=== PATIENT | female | born 1965 | race Caucasian/White ===

== ENCOUNTER 2016-09-27 14:52 | Observation (INO) | payer OTHER ==
[~2016-09-27] VITALS: Ht 170.2 cm; Wt 53.7 kg
--- NOTE | 2016-09-27 00:15 | NUR ---
Admit Patient arrived to floor at 2320. Patient A&OX3. NO pain at this time. Patient's IV was not patent at time of arrival and was removed. A new IV was stared on patient around 0100. Patient was given Reglan and then began drinking her bowel prep. Patient stated she was tired and just wanted to sleep. Patient receiving 5mg Roxycodone for pain.
[~2016-09-27 14:52] MED LIST: OMEP-113 PO; OXYC5CAP4 PO; [UNRECOGNIZED DRUG - OTHER]
[2016-09-27 14:56] VITALS: BP 101/69; PULSE 84; RESP 12; O2SAT 100
--- NOTE | 2016-09-27 15:23 | ED.REPORT ---
HPI-General Illness Date of Service Sep 27, 2016 ED Provider: Sriram Gregg MD The patient is a 51 year old female who presents to the ED c/o increasingly severe, cramping, diffuse lower abdominal pain over past week. Nonradiating. Associated symptoms include severe nausea, vomiting, and constipation, though is passing stools. She denies vaginal discharge, dysuria, urinary symptoms, chest pain, SOB, fever, chills, vision changes, headache, unilateral weakness, or any other symptoms at this time. Eating occasionally causes upper abdominal discomfort somewhat, but she's not sure if it's related. Nursing Notes Stated Complaint: VOMITING,ABDOMINAL PAIN Chief Complaint: Female Abdominal Pain Nursing Notes Reviewed: Yes Allergies: Coded Allergies: codeine (Verified Allergy, Severe, OK TO TAKE OXYCODONE/HYDROCODONE, ) adhesive (Verified Allergy, Intermediate, 11/27/13) skin red and burning. Scheduled Omeprazole Magnesium (Omeprazole) 20 Mg Capsule.dr 20 MG PO DAILY Scheduled PRN oxyCODONE (oxyCODONE) 5 Mg Capsule 5 MG PO Q4H PRN PRN For Pain Miscellaneous Medications ([Zopridim]) General Time Seen by MD: 15:20 Chief Complaint Abdominal pain Hx Obtained From: Patient Arrived By: Walk-in Sudden in Onset?: Yes Onset Occurred: 1 week ago Symptom Duration: Since onset Location: : Abdomen Quality: Cramping, Painful Radiation: : Does not radiate Severity: Current: Severe Associated with: Reports: Nausea, Vomiting Pertinent Negative: Pt denies other symptoms Recent Healthcare: No recent doctor visit, No recent hospitalization Similar Sx Previous: No Past Medical History Past Medical History GERD depression anxiety Past Surgical History Reports: Hysterectomy, Inguinal hernia repair Smoking History Current Every Day Smoker Social History Alcohol Use: "Social" Other Social History: Good social support, From out of town Ambulatory Status Independent Review of Systems Full Review of Systems Respiratory: Denies: Shortness of breath Cardiovascular: Denies: Chest pain GI: Reports: Abdominal pain, Constipation, Nausea, Vomiting Female: Denies: Dysuria, Hematuria, Incontinence, Urinary frequency, Urinary urgency, Urination decreased, Urination increased, Vaginal discharge Complete sys rev & neg: except as marked. Physical Exam Nursing note and vitals reviewed. Constitutional: Well-developed, well-nourished. Not diaphoretic. Head: Normocephalic and atraumatic. Mouth/Throat: Oropharynx is clear and moist. No oropharyngeal exudate. Eyes: EOM are normal. Pupils are equal, round, and reactive to light. Neck: Supple, no tracheal deviation. Cardiovascular: Normal rate, regular rhythm. Equal and intact distal pulses throughout. Pulmonary/Chest: Effort normal and breath sounds normal. No respiratory distress. Abdominal: Soft. No distension. There is no focal tenderness, rebound, or guarding, though does have some mild, diffuse lower abdominal discomfort to palpation. Bowel sounds present. Musculoskeletal: Range of motion grossly intact, moving all extremities. No edema or tenderness appreciated. Neurological: AOx3. Grossly nonfocal exam. Strength and sensation intact and equal to bilateral upper and lower extremities. Skin: Warm and dry, no rashes or pallor appreciated. Psychiatric: Appropriate mood and affect. Behavior appears normal. Vital Signs Vital Signs Date Time Temp Pulse Resp B/P Pulse Ox O2 Delivery O2 Flow Rate FiO2 09/27/16 14:56 37.1 84 12 101/69 100 Room Air Initial VS: Reviewed Interpretation & Diagnostics Lab Results Interpretation Result Diagram: 09/27/16 1736 09/27/16 1736 Test 09/27/16 17:36 White Blood Count 11.2th/mm3 (3.8-10.1) Red Blood Count 4.48mil/mm3 (3.90-5.20) Hemoglobin 13.6g/dL (12.0-15.6) Hematocrit 39.7% (35.0-46.0) Mean Corpuscular Volume 88.6fL (81-100) Mean Corpuscular Hemoglobin 30.4pg (27.0-35.0) Mean Corpuscular Hemoglobin Concent 34.3% (32.0-37.0) Red Cell Distribution Width 14.6% (12.3-15.4) Platelet Count 354bil/L (150-400) Neutrophils (%) (Auto) 69.6% (40-74) Lymphocytes (%) (Auto) 22.0% (14-46) Monocytes (%) (Auto) 5.4% (4-12) Eosinophils (%) (Auto) 2.3% (0-5) Basophils (%) (Auto) 0.4% (0-3) Erythrocyte Sedimentation Rate 7mm/hr (0-40) Prothrombin Time 10.0sec (8.1-12.5) Prothromb Time International Ratio 0.94ratio Sodium Level 135mEq/L (134-144) Potassium Level 3.9mEq/L (3.5-5.2) Chloride Level 99mEq/L (97-108) Carbon Dioxide Level 21mmol/L (18-29) Blood Urea Nitrogen 13mg/dL (6-24) Creatinine 0.70mg/dL (0.57-1.00) Estimat Glomerular Filtration Rate 126mL/min (>59) Glucose Level 103mg/dL (60-99) Lactic Acid Level 1.1mmol/L (0.4-2.0) Calcium Level 9.5mg/dL (8.5-10.1) Magnesium Level 1.8mg/dL (1.6-2.6) Total Bilirubin 0.2mg/dL (0.0-1.2) Aspartate Amino Transf (AST/SGOT) 16U/L (0-50) Alanine Aminotransferase (ALT/SGPT) 14U/L (0-32) Alkaline Phosphatase 74U/L (25-150) C-Reactive Protein < 0.0mg/dL (0.0-0.5) Total Protein 7.0g/dL (6.4-8.4) Albumin 4.2g/dL (3.4-5.0) Lipase 42U/L (13-60) Lab Results Interpretation: LABS: CMP within normal limits WBC 11.2 normal differential Coags normal limits ECG Interpretation Time: 17:43 Interpreted by: ED physician Normal ECG Interpretation: Normal sinus rhythm (rate 66) CT Abd / Pelvis Interpretation IMPRESSION: Segmental wall thickening and abnormal enhancement in the descending and sigmoid colon may represent multifocal colitis. Inflammatory conditions such as ulcer colitis is also possible. Followup of the patient's symptoms, colonoscopy will be needed to exclude any underlying mass lesion. Dictated by: Santiago Phipps M.D. on 09/27/2016 at 20:33 Approved by: Santiago Phipps M.D. on 09/27/2016 at 20:38 Study type: Abdominal CT no contrast Interpretation / Wet Read by: Interpret - Radiologist Re-Eval/Medical Decision Med Decision/Clinical Course In summary, 51 yo F w/ a hx of a complete hysterectomy who presents to the ED for evaluation of abdominal pain associated with nausea and vomiting over the past month, worse over the past several days. DDx broad and includes SBO, appendicitis, cholecystitis/biliary colic, pancreatitis, nephrolithiasis/renal colic, IBD, intraabdominal mass/abscess, gastroenteritis, diverticulitis, mesenteric ischemia, hernia. Had hysterectomy and no pelvic symptoms. Upon arrival to the ED, patient hemodynamically stable, vitals grossly within normal limits. Pt given IVF, antiemetics, and pain meds w/ minimal relief of symptoms. Initial workup and labs as per above, notable for a CMP within normal limits, white blood cell count of 11.2 with a normal differential, normal coags, ESR and CRP within normal limits. EKG demonstrates sinus rhythm w/ no evidence of acute ischemic changes. Patient declined pelvic exam. CT abd/pelvis demonstrates segmental wall thickening and abnormal enhancement in the descending and sigmoid colon that may represent multifocal colitis. In the setting of normal inflammatory markers, inflammatory bowel disease seems somewhat less likely. Upon reassessment, patient still with extensive pain. Discussed the patient with Dr. Valdez, who will see the patient in the morning and likely perform colonoscopy. Patient verbalized understanding and agreement with the plan as stated, denied further questions. Time of Eval: 19:56 Re-Evaluation/Progress Note: Plan for CT. Time of Eval: 22:07 Re-Evaluation/Progress Note: Pt rechecked. Extensive conversation with pt regarding CT findings of colitis in the setting of normal inflammatory markers. Offered pelvic exam but pt declined saying that she had a complete hysterectomy. She requested consult for GI. Given bentol. Consultation #1: Referral / Consult Name: Lauri Valdez MD Call Returned at: 22:15 Senior Electrical Designer: Will see patient, Agrees with eval, Agrees with plan Note: Case discussed with GI. He will see her in the morning. Consultation #2: Referral / Consult Name: Praful Gonzalez MD Consulted With: Hospitalist Call Returned at: 22:30 Senior Electrical Designer: Agrees with eval, Agrees with plan, Accepts admit Note: Case discussed with hospitalist, Dr. Gonzalez. He accepts admit. Counseled Regarding: Diagnosis, Lab results, Need for admission Discharge & Departure Primary Impression: Colitis, acute Disposition: ADMITTED TO HOSPITAL Discharge Condition All VS Reviewed: Yes Condition: Stable Patient Instructions: Colitis (ED) Referrals: Clyde Jameson MD (PCP) Lauri Valdez MD Attestation Portion of this note were transcribed by Stephanie Sepulveda. I, Dr. Gregg, personally performed the history, physical exam, and medical decision-making: I reviewed and confirmed the accuracy for the information in the transcribed note. Signed by: anjelica Perez, 09/27/16 2100 copies to: Clyde Jameson MD; Lauri Valdez MD, William B MD Sep 27, 2016 15:23 Stephanie Sepulveda Sep 27, 2016 18:20 copies to: Clyde Jameson MD; Lauri Valdez MD, William B MD Sep 27, 2016 15:23 Stephanie Sepulveda Sep 27, 2016 18:20
[2016-09-27] MEDS ORDERED: Ondansetron 2 mg/mL 2 mL Inj IVPUSH PRN ×2 (15:25→23:15)
[2016-09-27] MEDS ORDERED: 0.9% Sodium Chloride 1,000 ML IV ONE (15:25)
[2016-09-27] MEDS ORDERED: Iohexol 300 mg/mL 30 mL Inj PO ONE (17:40)
[2016-09-27 17:54] LABS: BASOPHILS % (AUTO) 0.4 % (0-3); EOSINOPHILS % (AUTO) 2.3 % (0-5); MONOCYTES % (AUTO) 5.4 % (4-12); Mean Corpuscular Hemoglobin 30.4 pg (27.0-35.0); Mean Corpuscular Volume 88.6 fL (81-100); NEUTROPHILS % (AUTO) 69.6 % (40-74); Platelet Count 354 bil/L (150-400)
[2016-09-27 18:07] LABS: INR 0.94 ratio
[2016-09-27 18:15] LABS: Magnesium 1.8 mg/dL (1.6-2.6)
--- NOTE | 2016-09-27 20:40 | DRSVH ---
PROCEDURE: CT ABDOMEN AND PELVIS WITH CONTRAST (PNL-7102) INDICATIONS: abd pain TECHNIQUE: After the administration of oral and intravenous contrast, 5 mm thick sections acquired from the diap hragms to the symphysis. 5 mm thick coronal and sagittal reformats were performed. For radiation do se reduction, the following was used: automated exposure control, adjustment of mA and/or kV accordi ng to patient size. COMPARISON: [facility], CT, ABD/PELVIS W/CON (PN), 08/02/2013, 0:58. FINDINGS: Image quality: Excellent. ABDOMEN: Lung bases: Lung bases are clear. Heart size is normal. Solid organs: Liver and spleen are normal in size and enhancement. Gallbladder is present. Biliary system is non-dilated. Pancreas enhances normally. No adrenal nodules. Kidneys are normal in size and enhancement, without hydronephrosis. Hysterectomy. Peritoneum and bowel: Segmental wall thickening and abnormal enhancement of the sigmoid and descendin g colon. No obstruction or perforation. Small bowel is normal. Appendix is not identified. There are no secondary signs of acute appendicitis.. Nodes and vessels: No retroperitoneal or mesenteric adenopathy. Aorta and inferior vena cava are no rmal in caliber. Miscellaneous: No ventral hernias. PELVIS: Genitourinary: Bladder wall thickness is normal. Miscellaneous: No inguinal hernias or adenopathy. Bones: No suspicious bony lesions. No vertebral body compression fractures. IMPRESSION: Segmental wall thickening and abnormal enhancement in the descending and sigmoid colon may represent multifocal colitis. Inflammatory conditions such as ulcer colitis is also possible. Followup of the p atient's symptoms, colonoscopy will be needed to exclude any underlying mass lesion. Dictated by: Santiago Phipps M.D. on 09/27/2016 at 20:33 Approved by: Santiago Phipps M.D. on 09/27/2016 at 20:38
[2016-09-27] MEDS ORDERED: MetoCLOpramide 5 mg/mL 2 mL Inj IVPUSH ONE (22:35)
[2016-09-27] MEDS ORDERED: PEG/Electrolytes 4,000 mL Solution PO ONE (22:35)
[2016-09-27 23:09] VITALS: BP 101/69; PULSE 84; RESP 12; O2SAT 100
[2016-09-27] MEDS ORDERED: HYDROcodone-APAP 5-325 mg Tablet PO PRN (23:15)
[2016-09-27] MEDS ORDERED: Alum-Mag Hydrox-Simeth 30 mL Suspension PO PRN (23:15)
[2016-09-27] MEDS ORDERED: Polyethylene Glycol (PEG) 17 Gm Powder PO PRN (23:15)
[2016-09-27 23:20] VITALS: BP 123/84; PULSE 63; RESP 17; O2SAT 97
--- NOTE | 2016-09-27 23:43 | PCM.HPMED ---
Subjective Date of Service Sep 27, 2016 Primary Provider: Admitting Physician: Praful Gonzalez MD Primary Care Physician: Clyde Jameson MD Attending Physician: Praful Gonzalez MD Chief Complaint: Abd pain, n/v History of Present Illness: 51 yo F with history of GERD presents to the ED for evaluation of crampy lower abdominal pain x 1 week. Pt reports that she has had intermittent nausea for the past 3 weeks. She went to see her PCP and was given anti-nausea meds, which moderately helped her symptoms. She reports it was mostly just nausea initially , but in the past week, she started having increasing lower abd pain which she describes as crampy. Occasionally the pain is more severe and sharp in the LLQ, but the pain generally does not bother her while she is sleeping. She states with increasing pain and nausea, she was unable to tolerate any oral intake. She also has an intermittent headache due to the pain and not being able to eat. She denies any associated fevers/chills, chest pain, shortness of breath, diarrhea, or rash. She does note some mild constipation, and small pencil-like stool when she is able to have a bowel movement. She denies any melena, or hematochezia. She is taking Senokot daily. She states that she does have chronic back pain and uses oxycodone and diazepam, but very sparsely. She is status post total hysterectomy and denies any vaginal discharge or bleeding. She is not on any hormone replacement therapy. She had similar symptoms about 3 years ago and had a colonoscopy at this facility which was mostly benign. Her vitals and blood work in the ER are all benign. She had a CT of her abdomen and pelvis which showed multifocal segmental thickening in the descending and sigmoid colon. Gastroenterology was consulted by the ED physician and was recommended to start colon prep for possible colonoscopy tomorrow. Review of Systems: Comprehensive review of systems was conducted with the patient and found to be negative except as noted above in HPI. Allergies Coded Allergies: codeine (Verified Allergy, Severe, OK TO TAKE OXYCODONE/HYDROCODONE, ) adhesive (Verified Allergy, Intermediate, 11/27/13) skin red and burning. Home Medications Omeprazole daily Senokot daily PMH GERD depression anxiety Surgical History Total hysterectomy Bilateral inguinal hernia repair Appendectomy Adhesion lysis Reports [place] procedure Colonoscopy in 2014 benign Family History Does not know her father's history Mother is [place] and lives in [place] so she does not know her history other Her two children are healthy Social History Occupation: ( Hx Alcohol Use: Yes Hx Substance Use: No Hx Tobacco Use: Yes (1 pack/day x 20 years) Smoking Status: Current Every Day Smoker Living Arrangement: with Family Exam Vital Signs Vital Sign - Last Date Time Temp Pulse Resp B/P Pulse Ox O2 Delivery O2 Flow Rate FiO2 09/27/16 23:09 37.1 84 12 101/69 100 Room Air Exam General: Well-developed, well-nourished female who appears in no acute distress HEENT: Normocephalic, atraumatic. External ears without defect. PERRLA, EOMI. Anicteric sclerae, moist conjunctivae, and no lid lag. Oropharynx free of erythema and cobble stoning with moist mucosa. Neck: Soft, nontender, trachea midline Cardiovascular: Regular rate and rhythm with no murmurs, rubs, or gallops appreciated Pulmonary: Clear to auscultation bilaterally with no crackles, wheezes, or rhonchi. Normal respiratory effort with no use of accessory muscles. Abdomen: Soft, nondistended, mildly tender to palpation in the lower quadrants, no rebound, no guarding, no rashes noted, normoactive bowel sounds Extremities: No clubbing, cyanosis, edema, or lymphadenopathy appreciated. Skin: Normal temperature, turgor, and texture; no rash, ulcers, or subcutaneous nodules appreciated. Neurological: Cranial nerves grossly intact. Normal muscle strength, tone, and bulk. Reflexes, coordination, and sensory function within normal limits. Psychiatric: Normal mood and affect. Alert and oriented to person, place, and time. Cooperative and pleasant Lab and Diagnostics Result Diagram: 09/27/16173509/27/161735 X-Rays, CTs and MRIs PROCEDURE: CT ABDOMEN AND PELVIS WITH CONTRAST ([id number]) IMPRESSION: Segmental wall thickening and abnormal enhancement in the descending and sigmoid colon may represent multifocal colitis. Inflammatory conditions such as ulcer colitis is also possible. Followup of the patient's symptoms, colonoscopy will be needed to exclude any underlying mass lesion. Assessment & Plan 51 yo F with history of GERD presents to the ED for evaluation of crampy lower abdominal pain and nausea x 1 week Likely acute colitis, POA As noted on CT imaging. Segmental thickening in her descending colon and sigmoid colon likely represents an acute colitis, although inflammatory markers are not elevated on admission, there are also no other signs or symptoms of infection Uncertain of the cause of her colitis, but will likely need to rule out malignancy GI consulted, will see patient in a.m. We will place patient on thin liquid diet and start GoLYTELY for bowel prep Nothing by mouth in the a.m. Will continue IV normal saline 125 mL per hour Antinausea and anti-emetics and anti-spasmodics as needed Chronic GERD, POA Patient reports a history of [place] procedure, but colonoscopy did not reveal any surgical changes in 2013 We will continue her omeprazole Chronic lower back pain, POA We will try to manage conservatively with muscle relaxants and Toradol If severe pain may trial Percocet PO CODE STATUS: Full resuscitation Patient is admitted under observation status with expected length of stay less than 2 midnights due to severity of presenting symptoms, risk of adverse event, and complexity of treatment plan. Pain Evaluation: Adequate Pain Control VTE Prophylaxis: Sub-Q Enoxaparin Resuscitation Status: CPR: Attempt Resuscitation Attending Statement The patient was seen and examined together with Dr. Fink on 09/27 and I agree with the history, exam and plan as outlined in the note above. George Fink DO Sep 27, 2016 23:20 Praful Gonzalez MD Sep 28, 2016 03:43
[2016-09-27] MEDS ORDERED: MetoCLOpramide 5 mg/mL 2 mL Inj IVPUSH PRN (23:45)
[2016-09-27] MEDS ORDERED: Ketorolac 15 mg/mL Inj IVPUSH PRN (23:45)
[2016-09-28] VITALS (7 sets, daily range): BP systolic 86–124; BP diastolic 67–82; PULSE 66–80; RESP 12–20; O2SAT 94–100
[2016-09-28 01:50] LABS: APPEARANCE,URINE CLEAR (CLEAR,HAZY); COLOR,URINE YELLOW (YELLOW); OCCULT BLOOD,URINE NEGATIVE (NEGATIVE); PH,URINE 5.5 (5.0-8.0); UROBILINOGEN,URINE NORMAL (NORMAL)
[2016-09-28] MEDS: 0.9% Sodium Chloride 1,000 ML IV SCH ×5 (02:39→13:10)
[2016-09-28 05:50] LABS: BASOPHILS % (AUTO) 0.4 % (0-3); EOSINOPHILS % (AUTO) 3.2 % (0-5); MONOCYTES % (AUTO) 7.5 % (4-12); Mean Corpuscular Hemoglobin 30.4 pg (27.0-35.0); NEUTROPHILS % (AUTO) 58.1 % (40-74); Platelet Count 337 bil/L (150-400)
--- NOTE | 2016-09-28 08:10 | PCM.CHPMED ---
Subjective Date of Service: Sep 28, 2016 Provider requesting consult: Sriram Gregg MD Primary Physician: Admitting Physician: Praful Gonzalez MD Primary Care Physician: Clyde Jameson MD Attending Physician: Clay Rodriguez MD Admit Status: From the Emergency Department Chief Complaint: Chief Complaint: Vomiting and abdominal pain History of Present Illness: Gastroenterology consultation 51-year-old female with GERD, depression, and anxiety presents to the emergency department with 3 weeks of intermittent nausea followed by 1 week of crampy lower abdominal pain. Who has occasionally severe left lower quadrant pain. She has had small caliber pencil like stools with some constipation. She denies melena or hematochezia, she has been no diarrhea, shortness of breath, chest pain, fever or chills. Review of Systems: A comprehensive review of systems was conducted with the patient and found to be negative except as above in the History of Present Illness. PMH Past Medical History GERD, anxiety, depression Surgical History Appendectomy at age 24 in association with ruptured fallopian tube removal Adhesion lysis at age 30 Colonoscopy in 2014 Bilateral inguinal hernia repair at age 13 Total hysterectomy age 26 [place] Procedure Home Medications Omeprazole and Senokot Allergies: Coded Allergies: codeine (Verified Allergy, Severe, OK TO TAKE OXYCODONE/HYDROCODONE, ) adhesive (Verified Allergy, Intermediate, 11/27/13) skin red and burning. Family History Family History Patient does not know father's medical history, she was raised by paternal grandparents. Family history is limited however there is no known family history of colon cancer, celiac disease, inflammatory bowel disease. Social History Hx Alcohol Use: YesAlcoholic Drinks Per Day: Once a weekHx Substance Use: No Hx Tobacco Use: Yes (1 pack/day x 20 years) Smoking Status: Current Every Day Smoker Living Arrangement: with Family Exam Vital Signs Vital Sign - Last Date Time Temp Pulse Resp B/P Pulse Ox O2 Delivery O2 Flow Rate FiO2 09/28/16 06:36 36.5 79 16 110/71 97 Room Air Intake and Output 09/27/16 09/27/16 09/28/16 Cumulative From/Thru 15:00 23:00 07:00 09/27/16 14:56 - 09/28/16 06:36 Intake Total 3200 ml 3200 ml Output Total 1151 ml 1151 ml Balance 2049 ml 2049 ml Intake Oral 3200 ml 3200 ml Output Urine Total 1151 ml 1151 ml # Bowel Movements 0 0 General: Alert, Oriented X3, Mild Distress Eyes: PERRLA Mouth: Mouth Normal, Mucous Membr Moist/Marianne Chest & Lungs: Chest Wall Normal, Auscultation (clear bilaterally) Cardiovascular: Regular Rate/Rhythm, No Murmurs/Rubs/Gallops Abdomen: Tender, Distended (mildly), Soft Extremities: No cyanosis/clubbing/edma bilat, Normal bilaterally Neurological: Grossly Neurologically Intact Lab and Diagnostics Labs ESR and CRP normal, lipase normal at 42 Result Diagram: 09/28/1652809/28/16528 X-Rays, CTs and MRIs CT ABDOMEN AND PELVIS WITH CONTRAST IMPRESSION: Segmental wall thickening and abnormal enhancement in the descending and sigmoid colon may represent multifocal colitis. Inflammatory conditions such as ulcer colitis is also possible. Followup of the patient's symptoms, colonoscopy will be needed to exclude any underlying mass lesion. Dictated by: Santiago Phipps M.D. on 09/27/2016 at 20:33 Additional Diagnostics: 09/28/2016 Colonoscopy. ENDOSCOPIC DIAGNOSES: 1. Hemorrhoids. 2. Tortuous navigation to cecum. RECOMMENDATIONS: 1. The patient should be allowed discharge home at the discretion of the primary service. 2. Advance diet as tolerated. 3. Daily bowel regimen to facilitate soft regular stools. I would start with at least 2 tablespoons of ground flaxseed fiber mixed in 8 ounces of water or juice once daily. Lauri Valdez MD 09/28/16 9190 Assessment & Plan Assessment Patient is a 51-year-old female with past medical history significant for GERD, depression, and anxiety. With multiple abdominal surgeries including adhesiolysis at the age of 30. Multifocal segmental thickening was found on CT examination. Patient was prepped for colonoscopy. 1. Colonoscopy performed today did not show any significant inflammation or polyps. 2. Advance diet as tolerated. 3. Daily bowel regimen to facilitate soft regular stools. Start with at least 2 tablespoons of ground flaxseed fiber mixed in 8 ounces of water or juice once daily. The patient should be allowed discharge home at the discretion of the primary service. Problems: VTE Prophylaxis: Sub-Q Enoxaparin VTE Mechanical Devices: Intermittant Pneumatic CD Resuscitation Status: CPR: Attempt Resuscitation Attending Statement Patient seen and examined. Agree with assessment and plan as described by Dr Garcia. copies to: Lauri Valdez MD, Erika R DO Sep 28, 2016 08:10 Lauri Valdez MD Sep 28, 2016 19:33
--- NOTE | 2016-09-28 12:00 | NUR ---
TO ENDO Report given to endo. IV saline locked. Transferred to endo.
[2016-09-28] MEDS ORDERED: fentaNYL-PF 50 mCg/mL 2 mL Inj IVPUSH PRN (12:10)
--- NOTE | 2016-09-28 13:51 | ENDO ---
[address] [address] ENDOSCOPY PROCEDURE PATIENT: KOREY MEDINA : 1965 MR#: [id number] ADMIT: 09/27/2016 JOB ID: [id number] DATE: 09/28/2016 PROCEDURE: Colonoscopy. INDICATIONS: A 51-year-old female admitted with abdominal pain, and an abnormal CAT scan. She reports she has thin caliber stools, challenges with constipation but now feels better following bowel prep. EQUIPMENT: FH 180 AL. SEDATION: 1. 8 mg Versed. 2. 175 mcg fentanyl. COMPLICATIONS: None identified. BOWEL PREP: Very adequate. PROCEDURAL INFORMATION: After the risks and benefits were explained, written and verbal informed consent was obtained. The patient was brought into the endoscopy suite and placed into the left lateral decubitus position. Sedation was achieved using the above-stated medications with the addition of oxygen via nasal cannula. A digital rectal examination was accomplished. Mild internal hemorrhoids noted. The scope was introduced into the rectum and advanced to the cecum as identified by the appendiceal orifice and ileocecal valve. The scope was slowly withdrawn to carefully examine the mucosa for any defects or lesions. Multiple direct views were made through the dentate line for exclusion of pathology. The colon was decompressed. The scope removed from the patient who tolerated the procedure reasonably well. FINDINGS: Exceptionally difficult navigation through the rectosigmoid region secondary to sharp cornering. I did not appreciate any mass lesions. No significant inflammation or polyps throughout. Specifically in the region described at CAT scan, there was no evidence of any inflammatory process. ENDOSCOPIC DIAGNOSES: 1. Hemorrhoids. 2. Tortuous navigation to cecum. RECOMMENDATIONS: 1. The patient should be allowed discharge home at the discretion of the primary service. 2. Advance diet as tolerated. 3. Daily bowel regimen to facilitate soft regular stools. I would start with at least 2 tablespoons of ground flaxseed fiber mixed in 8 ounces of water or juice once daily.
--- NOTE | 2016-09-28 14:51 | NUR ---
BACK FROM ENDO Patient is back from endo via a gurney. IVF restarted. Patient rated her pain as 7/10 in her abdomen, describing it as a cramping pain. Toradol IV administered. Per patient Toradol is not effective for her. Morphine IV administered. Will monitor effectivity. Started patient on clear liquids and will advance as tolerated per orders. Denies SOB. Care continues.
--- NOTE | 2016-09-28 15:36 | PCM.PNMED ---
Subjective Date of Service Sep 28, 2016 Subjective He should return for colonoscopy. Tests that her abdominal pain is somewhat improved distal clinic no abdominal cramps. Her abdomen is distended. Exam Vital Signs Vital Sign - Last Date Time Temp Pulse Resp B/P Pulse Ox O2 Delivery O2 Flow Rate FiO2 09/28/16 14:30 36.7 69 20 122/76 100 Room Air Intake and Output 09/27/16 09/27/16 09/28/16 Cumulative From/Thru 15:00 23:00 07:00 09/27/16 14:56 - 09/28/16 06:36 Intake Total 3200 ml 3200 ml Output Total 1151 ml 1151 ml Balance 2049 ml 2049 ml Intake Oral 3200 ml 3200 ml Output Urine Total 1151 ml 1151 ml # Bowel Movements 0 0 Exam General: Well-developed, well-nourished female who appears in no acute distress HEENT: Normocephalic, atraumatic. External ears without defect. PERRLA, EOMI. Anicteric sclerae, moist conjunctivae, and no lid lag. Oropharynx free of erythema and cobble stoning with moist mucosa. Neck: Soft, nontender, trachea midline Cardiovascular: Regular rate and rhythm with no murmurs, rubs, or gallops appreciated Pulmonary: Clear to auscultation bilaterally with no crackles, wheezes, or rhonchi. Normal respiratory effort with no use of accessory muscles. Abdomen: Soft, nondistended, mildly tender to palpation in the lower quadrants, no rebound, no guarding, no rashes noted, normoactive bowel sounds Extremities: No clubbing, cyanosis, edema, or lymphadenopathy appreciated. Skin: Normal temperature, turgor, and texture; no rash, ulcers, or subcutaneous nodules appreciated. Neurological: Cranial nerves grossly intact. Normal muscle strength, tone, and bulk. Reflexes, coordination, and sensory function within normal limits. Psychiatric: Normal mood and affect. Alert and oriented to person, place, and time. Cooperative and pleasant IVs and Medications Medications Reviewed: Medications were reviewed in detail Lab and Diagnostics Result Diagram: 09/28/1652809/28/16528 X-Rays, CTs and MRIs PROCEDURE: CT ABDOMEN AND PELVIS WITH CONTRAST (PNL-7102) IMPRESSION: Segmental wall thickening and abnormal enhancement in the descending and sigmoid colon may represent multifocal colitis. Inflammatory conditions such as ulcer colitis is also possible. Followup of the patient's symptoms, colonoscopy will be needed to exclude any underlying mass lesion. Assessment & Plan 51 yo F with history of GERD presents to the ED for evaluation of crampy lower abdominal pain and nausea x 1 week #Abd pain- Likely 2/2 to consipation. As noted on CT imaging. Segmental thickening in her descending colon and sigmoid colon likely represents an acute colitis, although inflammatory markers are not elevated on admission, there are also no other signs or symptoms of infection. Uncertain of the cause of her colitis, but will likely need to rule out malignancy GI consulted.Placed patient on thin liquid diet and start GoLYTELY for bowel prep Nothing by mouth in the a.m. Will continue IV normal saline 125 mL per hour -Antinausea and anti-emetics and anti-spasmodics as needed - 09/28-Patient is status post colonoscopy. No finding of colitis, making constipation the more likely etiology. - We will DC with bowel regimen including MiraLAX and docusate senna. Educated on using a bowel regimen and him taking narcotics. #Chronic GERD, POA Patient reports a history of hilltop procedure, but colonoscopy did not reveal any surgical changes in 2013 We will continue her omeprazole #Chronic lower back pain, POA We will try to manage conservatively with muscle relaxants and Toradol If severe pain may trial Percocet PO CODE STATUS: Full resuscitation Patient is admitted under observation status with expected length of stay less than 2 midnights due to severity of presenting symptoms, risk of adverse event, and complexity of treatment plan. Dispo- - -Upon discharge patient has an appointment with their primary care physician on October 01 3 PM. From there patient will get a referral to surgery to evaluate if needs surgery for adhesions. - We will DC with bowel regimen including MiraLAX and docusate senna. Educated on using a bowel regimen and him taking narcotics. Pain Evaluation: Adequate Pain Control VTE Prophylaxis: Sub-Q Enoxaparin VTE Mechanical Devices: Intermittant Pneumatic CD Resuscitation Status: CPR: Attempt Resuscitation Clay Rodriguez MD Sep 28, 2016 15:35
--- NOTE | 2016-09-28 15:57 | NUR ---
Social Work: Screening/Multi-Disciplinary Rounds/Readiness for Discharge D: EMR reviewed. Pt is a 51 y/o female Kathy for colitis per H&P. Pt's insurance is [employer]. PCP is Clyde Jameson MD. Per MD in rounds, pt to receive colonoscopy today and pending results, likely discharge home. MD did not indicate any SW discharge planning needs at this time. Pt's sister is listed as NOK ([phone]). A: Pt who is independent at baseline - per discussion in rounds. P: Pt likely to discharge home POV, no SW needs identified by MD/RN in rounds. SW will continue to follow. TERRIE Lyn
--- NOTE | 2016-09-28 17:55 | PCM.DIMED ---
Discharge Instructions Date of Service Sep 28, 2016 Dates of Hospitalization Sep 27, 2016 at 22:45 Discharge Diagnosis Discharge Diagnosis #Abd pain due to constipation, POA, resolved. #Chronic GERD, POA, chronic #Chronic lower back pain, POA, chronic Medication Instructions Additional med instructions Daily bowel regimen to facilitate soft regular stools. Start with at least 2 tablespoons of ground flaxseed fiber mixed in 8 ounces of water or juice once daily. Can take Miralax and Docu-Senna as needed with goal of 1 BM daily. Diet Discharge Diet: No restrictions Activity Discharge Activity: No restrictions Call your provider Call your provider for: Fever or Chills, Excessive diarrhea Patient Instructions Follow-up plan We have made the appointment with the surgeon for you. Contact information on card provided. Phone number of office to confirm appointment is [phone] Follow-up Provider: Clyde Jameson MD Follow-up with PCP in: 1 week Clay Rodriguez MD Sep 28, 2016 17:55
--- NOTE | 2016-09-28 17:59 | PCM.DC.MED ---
Discharge Summary Date of Service Sep 28, 2016 Dates of Hospitalization Date of Hospital Admission Sep 27, 2016 at 22:45 Date of Discharge: Sep 28, 2016 Providers: Admitting Physician: Praful Gonzalez MD Primary Care Physician: Clyde Jameson MD Attending Physician: Clay Rodriguez MD Diagnosis at Time of Discharge Diagnosis at Time of Discharge #Abd pain due to constipation, POA, resolved. #Chronic GERD, POA, chronic #Chronic lower back pain, POA, chronic Procedures XRay, CTs & MRIs PROCEDURE: CT ABDOMEN AND PELVIS WITH CONTRAST (PNL-7102) IMPRESSION: Segmental wall thickening and abnormal enhancement in the descending and sigmoid colon may represent multifocal colitis. Inflammatory conditions such as ulcer colitis is also possible. Followup of the patient's symptoms, colonoscopy will be needed to exclude any underlying mass lesion. Brief History Gastroenterology consultation 51-year-old female with GERD, depression, and anxiety presents to the emergency department with 3 weeks of intermittent nausea followed by 1 week of crampy lower abdominal pain. Who has occasionally severe left lower quadrant pain. She has had small caliber pencil like stools with some constipation. She denies melena or hematochezia, she has been no diarrhea, shortness of breath, chest pain, fever or chills. Hospital Course 51 yo F with history of GERD presents to the ED for evaluation of crampy lower abdominal pain and nausea x 1 week #Abd pain- Likely 2/2 to consipation. As noted on CT imaging. Segmental thickening in her descending colon and sigmoid colon likely represents an acute colitis, although inflammatory markers are not elevated on admission, there are also no other signs or symptoms of infection. Uncertain of the cause of her colitis, but will likely need to rule out malignancy GI consulted.Placed patient on thin liquid diet and start GoLYTELY for bowel prep Nothing by mouth in the a.m. Will continue IV normal saline 125 mL per hour -Antinausea and anti-emetics and anti-spasmodics as needed - 09/28-Patient is status post colonoscopy. No finding of colitis, making constipation the more likely etiology. - We will DC with bowel regimen including MiraLAX and docusate senna. Educated on using a bowel regimen and him taking narcotics. #Chronic GERD, POA Patient reports a history of hilltop procedure, but colonoscopy did not reveal any surgical changes in 2013 We will continue her omeprazole #Chronic lower back pain, POA We will try to manage conservatively with muscle relaxants and Toradol If severe pain may trial Percocet PO CODE STATUS: Full resuscitation Patient is admitted under observation status with expected length of stay less than 2 midnights due to severity of presenting symptoms, risk of adverse event, and complexity of treatment plan. Dispo- - -Upon discharge patient has an appointment with their primary care physician on October 01 3 PM. From there patient will get a referral to surgery to evaluate if needs surgery for adhesions. - We will DC with bowel regimen including MiraLAX and docusate senna. Educated on using a bowel regimen and him taking narcotics. Exam Vital Signs (Last) Date Time Temp Pulse Resp B/P Pulse Ox O2 Delivery O2 Flow Rate FiO2 09/28/16 14:30 36.7 69 20 122/76 100 Room Air Test 09/27/16 17:36 09/28/16 01:30 09/28/16 05:29 Erythrocyte Sedimentation Rate 7mm/hr (0-40) Prothrombin Time 10.0sec (8.1-12.5) Prothromb Time International Ratio 0.94ratio Lactic Acid Level 1.1mmol/L (0.4-2.0) Magnesium Level 1.8mg/dL (1.6-2.6) Total Bilirubin 0.2mg/dL (0.0-1.2) Aspartate Amino Transf (AST/SGOT) 16U/L (0-50) Alanine Aminotransferase (ALT/SGPT) 14U/L (0-32) Alkaline Phosphatase 74U/L (25-150) C-Reactive Protein < 0.0mg/dL (0.0-0.5) Total Protein 7.0g/dL (6.4-8.4) Albumin 4.2g/dL (3.4-5.0) Lipase 42U/L (13-60) Urine Color Yellow (YELLOW) Urine Appearance Clear (CLEAR,HAZY) Urine pH 5.5 (5.0-8.0) Urine Specific [place] 1.020 (1.003-1.035) Urine Protein Negativemg/dL (NEG,TRACE) Urine Glucose (UA) Negativemg/dL (NEGATIVE) Urine Ketones Negativemg/dL (NEGATIVE) Urine Occult Blood Negative (NEGATIVE) Urine Nitrite Negative (NEGATIVE) Urine Bilirubin Negative (NEGATIVE) Urine Urobilinogen Normalmg/dL (NORMAL) Urine Leukocyte Esterase Negative (NEGATIVE) Urine RBC 0-2/hpf (0-2) Urine WBC 0-5/hpf (0-5) Urine Epithelial Cells Moderate/hpf (NONE-MOD) Urine Crystals None seen (NONE SEEN) Urine Bacteria Few/hpf (NONE-FEW) Urine Hyaline Casts None/lpf (NONE) Urine Granular Casts None seen (NONE SEEN) Urine Waxy Casts None seen (NONE SEEN) Urine Red Blood Cell Casts None seen (NONE SEEN) Urine White Blood Cell Casts None seen (NONE SEEN) Urine Mucus None seen (None Seen) Urine Trichomonas None seen (NONE SEEN) Urine Yeast None (NONE SEEN) Urinalysis Comment None Urine Culture Reflexed Not indicated White Blood Count 7.7th/mm3 (3.8-10.1) Red Blood Count 4.27mil/mm3 (3.90-5.20) Hemoglobin 13.0g/dL (12.0-15.6) Hematocrit 38.0% (35.0-46.0) Mean Corpuscular Volume 89.0fL (81-100) Mean Corpuscular Hemoglobin 30.4pg (27.0-35.0) Mean Corpuscular Hemoglobin Concent 34.2% (32.0-37.0) Red Cell Distribution Width 14.4% (12.3-15.4) Platelet Count 337bil/L (150-400) Neutrophils (%) (Auto) 58.1% (40-74) Lymphocytes (%) (Auto) 30.7% (14-46) Monocytes (%) (Auto) 7.5% (4-12) Eosinophils (%) (Auto) 3.2% (0-5) Basophils (%) (Auto) 0.4% (0-3) Sodium Level 142mEq/L (134-144) Potassium Level 4.1mEq/L (3.5-5.2) Chloride Level 106mEq/L (97-108) Carbon Dioxide Level 25mmol/L (18-29) Blood Urea Nitrogen 8mg/dL (6-24) Creatinine 0.76mg/dL (0.57-1.00) Estimat Glomerular Filtration Rate 115mL/min (>59) Glucose Level 109mg/dL (60-99) Calcium Level 9.0mg/dL (8.5-10.1) Discharge Medications Discharge Medications Omeprazole Magnesium (Omeprazole) 20 Mg Capsule.dr 20 MG PO DAILY (Reported) As needed oxyCODONE (oxyCODONE) 5 Mg Capsule 5 MG PO Q4H PRN PRN For Pain (Reported) Miscellaneous Medications ([Zopridim]) (Reported) Additional med instructions Daily bowel regimen to facilitate soft regular stools. Start with at least 2 tablespoons of ground flaxseed fiber mixed in 8 ounces of water or juice once daily. Can take Miralax and Docu-Senna as needed with goal of 1 BM daily. Followup Plan Disposition: Discharge to home Follow-up plan We have made the appointment with the surgeon for you. Contact information on card provided. Phone number of office to confirm appointment is [phone] Discharge Diet: No restrictions Discharge Activity: No restrictions Follow-up Provider: Clyde Jameson MD Follow-up with PCP in: 1 week Clay Rodriguez MD Sep 28, 2016 17:59
--- NOTE | 2016-09-28 18:43 | NUR ---
DISCHARGE Patient denies pain at this time. She has been tolerating clear liquids. She did not want to advance her diet. She wants to discharge [facility]. Denies nausea. No emesis noted. Denies SOB. Patient has been ambulating independently in the room. Gait is steady. + Flatus post colonoscopy. Dr. Rodriguez is aware of patients desire to discharge. IV saline lock d/cd. Discharge instructions and care notes was given to the patient and she verbalized understanding. Discharged to home with her significant other and all her personal belongings. (Copy of D/C is in the chart).
== END 2016-09-28 18:29 | disposition home or self-care (01) ==
LOC: SED 14:52 → OSC 22:45
PROVIDERS: ADMIT Hospitalist; ATTEND Internal Medicine
DX: R10.9 Unspecified abdominal pain (principal); K59.00 Constipation, unspecified; K64.8 Other hemorrhoids; K52.9 Noninfective gastroenteritis and colitis, unspecified; K21.9 Gastro-esophageal reflux disease without esophagitis; M54.5 Low back pain; F32.9 Major depressive disorder, single episode, unspecified; F41.9 Anxiety disorder, unspecified; F17.210 Nicotine dependence, cigarettes, uncomplicated
CPT/HCPCS: 36415; 45378; 74177; 80048; 80053; 81000; 83605; 83690; 83735; 85025; 85610; 85651; 86140; 93005; 96361; 96374; 96375; 96376; 99153; 99285; G0378; G0500; J1650; J1885; J2250; J2270; J2405; J2765; J3010; J7030; Q9967